=== PATIENT | male | born 1980 | race Caucasian/White ===

== ENCOUNTER 2018-11-01 10:27 | Emergency (ER) | payer BC, SELFPAY ==
[2018-11-01 10:28] VITALS: BP 138/82; PULSE 95; RESP 18; TEMP 37.1; O2SAT 97; BMI 28.7
--- NOTE | 2018-11-01 11:00 | CT_ITS ---
STUDY: CT ABDOMEN AND PELVIS WITHOUT CONTRAST REASON FOR EXAM: Male, 38 years old. Worsening left lower quadrant pain. RADIATION DOSAGE (If Supplied By Facility): CTDIvol = ( 18.23 ) mGy, DLP = ( 1092.17 ) mGycm TECHNIQUE: Transaxial images were obtained from the dome of the diaphragm to the symphysis pubis without oral contrast, and without intravenous contrast. Sagittal and coronal images were reconstructed. Individualized dose optimization techniques were used for this CT. COMPARISON: None. FINDINGS: The visualized lung bases are unremarkable. The visualized portions of the heart are within normal limits. Normal liver. Normal gallbladder and extrahepatic biliary system. Normal spleen. Normal pancreas. Normal bilateral adrenal glands. Normal right kidney. Normal left kidney. Normal visualized stomach. Normal small intestine. Moderate amount of fecal material is seen in the colon. The appendix is visualized and appears normal. Normal abdominal aorta. Normal inferior vena cava. Normal retroperitoneum. Normal urinary bladder. There is a small umbilical hernia containing fat. Minimal anterolisthesis of L5 on S1 with spondylolysis of the pars interarticularis of the L5 vertebrae. CT/Abdomen/Pelvis WITH Contrast IMPRESSION: Moderate amount of fecal material is seen in the colon. Minimal anterior listhesis of L5 on S1 with spondylolysis of the pars intraarticularis of the L5 vertebrae. Electronically Signed: Frankie Parr, at 13:05 EDT , Service support ,
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
[2018-11-01] MEDS: 0.9% Normal Saline 1,000 ML 1000 ML IV (11:13)
[2018-11-01] MEDS: Ondansetron 4 MG/2 ML Vial IV (11:13)
[2018-11-01 11:23] LABS: Absolute Neutrophil Count 3.3 X10^3/uL (2.0-7.7); Basophil# 0.03 X10^3/uL; Basophil% 0.5 % (0-1); Eosinophil# 0.26 X10^3/uL; Eosinophils% 4.3 % (0-5); Hematocrit 48.5 % (40-54); Hemoglobin 15.9 g/dl (13.0-16.5); Lymphocyte % 32.8 % (19-41); Mean Corp Hgb Conc 32.8 g/gl (32-36); Mean Corpuscular Hgb 28.8 pg (27.0-32.0); Mean Corpuscular Volume 87.9 fL (80-94); Mean Platelet Vol. 9.5 fl (6.2-12.0); Monocyte# 0.54 X10^3/uL; Monocyte% 8.9 % (0-10); Neutrophil # 3.26 X10^3/uL (2.7-7.7); Neutrophil % 53.3 % (47-70); Platelet Count 228 K/mm3 (150-450); Red Blood Count 5.52 M/mm3 (4.6-6.2); White Blood Count 6.1 K/mm3 (4.4-11.0)
[2018-11-01 11:24] LABS: POSITIVE COUNT NO; POSITIVE DIFFERENTIAL NO; POSITIVE MORPHOLOGY NO
[2018-11-01 11:37] LABS: ALB/GLOB Ratio 1.2 RATIO (0.9-2.4); AST(SGOT) 19 U/L (15-37); Alanine Aminotransfer ALT/SGPT 39 U/L (16-61); Alkaline Phosphatase 109 U/L (45-117); Anion Gap 5 (5-15); BUN 23 mg/dL (7-18); BUN/Creat Ratio 20.7 RATIO (10-20); Calcium,Total 8.7 mg/dL (8.5-10.1); Chloride 109 mmol/L (98-107); Creatinine, Serum 1.11 mg/dL (0.70-1.30); EST Glomerular Filtration Rate 78 mL/min (>60); Est Glom Filt Rate - Afr Amer 94 mL/min (>60); Estimated Creatinine Clearance 108.61 ml/min; Globulin 3.4 g/dL (2.2-4.2); Glucose 98 mg/dL (74-106); Lipase 92 U/L (73-393); Potassium 4.5 mmol/L (3.5-5.1); Protein, Total 7.4 g/dL (6.4-8.2); Sodium Level 142 mmol/L (136-145)
[2018-11-01 13:34] VITALS: BP 134/87; PULSE 84; RESP 18; O2SAT 99
== END 2018-11-01 13:55 | disposition home or self-care (01) ==
PROVIDERS: Emergency Provider Emergency Medicine
DX: K21.9 Gastro-esophageal reflux disease without esophagitis (principal); K59.00 Constipation, unspecified; K29.70 Gastritis, unspecified, without bleeding
CPT/HCPCS: 74177; 80053; 83690; 85025; 96361; 96374; 99283; J7030; Q9967; A4216; J2405

== ENCOUNTER → 2020-02-13 09:00 | Outpatient (CLI) | payer BC, SELFPAY ==
[2020-02-13 09:50] LABS: Absolute Lymphocyte Count 2.28 X10^3/uL (0.83-4.51); Basophil# 0.04 X10^3/uL; Basophil% 0.6 % (0-1); Eosinophil# 0.25 X10^3/uL; Eosinophils% 3.5 % (0-5); Hematocrit 48.3 % (40-54); Hemoglobin 15.4 g/dL (13.0-16.5); Lymphocyte # 2.28 X10^3/ul (4.0); Lymphocyte % 31.8 % (19-41); Mean Corp Hgb Conc 31.9 g/dL (32-36); Mean Corpuscular Hgb 28.5 pg (27.0-32.0); Mean Corpuscular Volume 89.4 fL (80-94); Mean Platelet Vol. 9.5 fl (6.2-12.0); Monocyte% 8.4 % (0-10); NRBC Flagged by Analyzer 0 % (0-5); Neutrophil # 3.98 X10^3/uL (2.7-7.7); Neutrophil % 55.4 % (47-70); Platelet Count 269 K/mm3 (150-450); RBC Distribution Width CV 12.3 % (11.6-14.6); RBC Distribution Width SD 40.1 fl (35.1-43.9); White Blood Count 7.2 K/mm3 (4.4-11.0)
[2020-02-13 10:19] LABS: Vitamin B12 483 pg/mL (211-911); Vitamin D,25 Hydroxy 32.7 ng/mL
[2020-02-13 10:26] LABS: AST(SGOT) 21 U/L (15-37); Alanine Aminotransfer ALT/SGPT 47 U/L (16-61); Albumin, Serum 3.8 g/dL (3.2-5.0); Alkaline Phosphatase 105 U/L (45-117); Anion Gap 4 (5-15); BUN 22 mg/dL (7-18); BUN/Creat Ratio 19.6 RATIO (10-20); Calcium,Total 8.9 mg/dL (8.5-10.1); Chloride 109 mmol/L (98-107); Cholesterol 185 mg/dL (200); Creatinine, Serum 1.12 mg/dL (0.70-1.30); EST Glomerular Filtration Rate 77 mL/min (>60); Est Glom Filt Rate - Afr Amer 93 mL/min (>60); Globulin 3.8 g/dL (2.2-4.2); Glucose 94 mg/dL (74-106); High Density Lipoprotein 52 mg/dL; Potassium 4.2 mmol/L (3.5-5.1); Protein, Total 7.6 g/dL (6.4-8.2); Sodium Level 141 mmol/L (136-145); Thyroid Stim Hormone (TSH) 0.37 uIU/mL (0.358-3.74); Triglycerides 133 mg/dL; Very Low Density Lipoprotein 27 mg/dL (5-40)
== END ==
PROVIDERS: Visit Provider Family Medicine
DX: Z13.220 Encounter for screening for lipoid disorders (principal); R53.83 Other fatigue
CPT/HCPCS: 36415; 80053; 80061; 82306; 82607; 84443; 85025

== ENCOUNTER → 2020-08-10 09:04 | Outpatient (CLI) | payer BC, SELFPAY ==
[2020-08-10 10:10] LABS: Prolactin 8.2 ng/mL
[2020-08-12 07:07] LABS: Testosterone, Free 12.89 ng/dL (5.00-21.00)
[2020-08-12 14:58] LABS: Testosterone, % Free 3.93 % (1.50-4.20); Testosterone, Total 328 ng/dL (264-916)
== END ==
PROVIDERS: PCP Family Medicine; Referring Provider Family Medicine; Visit Provider Family Medicine
DX: R53.83 Other fatigue (principal)
CPT/HCPCS: 36415; 84146; 84402; 84403

== ENCOUNTER 2021-10-24 16:21 | Outpatient (CLI) | payer BC, SELFPAY ==
[2021-10-24 18:52] LABS: ALB/GLOB Ratio 0.9 RATIO (0.9-2.4); AST(SGOT) 21 U/L (15-37); Alanine Aminotransfer ALT/SGPT 34 U/L (16-61); Albumin, Serum 3.3 g/dL (3.2-5.0); Alkaline Phosphatase 82 U/L (45-117); Anion Gap 5 (5-15); BUN 18 mg/dL (7-18); BUN/Creat Ratio 12.3 RATIO (10-20); Calcium,Total 8.8 mg/dL (8.5-10.1); Chloride 109 mmol/L (98-107); Cholesterol 146 mg/dL (200); Creatinine, Serum 1.46 mg/dL (0.70-1.30); EST Glomerular Filtration Rate 56 mL/min (>60); Est Glom Filt Rate - Afr Amer 68 mL/min (>60); Globulin 3.6 g/dL (2.2-4.2); Glucose 119 mg/dL (74-106); High Density Lipoprotein 43 mg/dL; Potassium 3.5 mmol/L (3.5-5.1); Protein, Total 6.9 g/dL (6.4-8.2); Sodium Level 141 mmol/L (136-145); Thyroid Stim Hormone (TSH) 0.84 uIU/mL (0.358-3.74); Triglycerides 155 mg/dL; Very Low Density Lipoprotein 31 mg/dL (5-40)
== END 2021-10-24 23:59 | disposition home or self-care (01) ==
LOC: MFPLAB 16:24
PROVIDERS: Family Medicine; PCP Family Medicine; Visit Provider Nurse Practitioner Family
DX: E66.9 Obesity, unspecified (principal)
CPT/HCPCS: 36415; 80053; 80061; 84443

== ENCOUNTER → 2022-01-27 | Outpatient (CLI) | payer BC, SELFPAY ==
--- NOTE | 2022-01-27 17:02 | CT_ITS ---
STUDY: CT ABDOMEN WITH CONTRAST REASON FOR EXAM: Male, 41 years old. Bulge right paraspinal area . RADIATION DOSAGE (If Supplied By Facility): CTDIvol = ( 14.70 ) mGy, DLP = ( 2567.23 ) mGycm TECHNIQUE: Transaxial images were obtained post I.V. administration of 100 mL Isovue 300. Sagittal and coronal images were reconstructed. Individualized dose optimization techniques were used for this CT. COMPARISON: November 01, 2018. FINDINGS: The visualized lung bases are unremarkable. The visualized portions of the heart are within normal limits. Normal liver. Normal gallbladder and extrahepatic biliary system. Normal spleen. Normal pancreas. Normal bilateral adrenal glands. Normal right kidney. Normal left kidney. Normal visualized stomach. Normal small intestine. Normal colon. The appendix is visualized and appears normal. Normal abdominal aorta. Normal inferior vena cava. Normal retroperitoneum. Normal abdominal wall. L5-S1 grade 1 spondylolisthesis with bilateral spondylolysis, unchanged. Disc space narrowing. Mild asymmetry involving the right lateral spinal musculature at T12 and L1 unchanged, axial image 26 series 2 and coronal image 23 series 601. Bulge measures 4.8 x 2[address]/Abdomen WITH IV Contrast IMPRESSION: No acute findings in the abdomen. Focal bulge arising from the right paraspinal musculature at T12 and L1. This has not significantly changed since the prior study. If there is a suspicion of an underlying mass and further evaluation is indicated recommend MRI. L5-S1 grade 1 spondylolisthesis with bilateral spondylolysis unchanged. Electronically Signed: Ochoa Farrell MD at 4:26 EDT Reading Location ID and State: [id number] / , Service support ,
== END | disposition home or self-care (01) ==
LOC: CT 17:00
PROVIDERS: PCP Family Medicine; Referring Provider Surgery; Visit Provider Surgery
DX: R19.00 Intra-abdominal and pelvic swelling, mass and lump, unspecified site (principal)
CPT/HCPCS: 74160; Q9967

== ENCOUNTER 2022-09-27 20:12 | Emergency (ER) | payer BC, SELFPAY ==
[2022-09-27 20:12] VITALS: BP 137/65; PULSE 82; RESP 15; TEMP 36.7; O2SAT 95; BMI 26.7
== END 2022-09-27 20:18 | disposition left against medical advice (07) ==
LOC: ED 20:29
PROVIDERS: PCP Family Medicine
DX: Z53.21 Procedure and treatment not carried out due to patient leaving prior to being seen by health care provider (principal)

== ENCOUNTER → 2022-12-13 | Outpatient (CLI) | payer BC, SELFPAY ==
[2022-12-13 13:12] LABS: Anion Gap 4 (5-15); BUN 17 mg/dL (7-18); BUN/Creat Ratio 12.9 RATIO (10-20); Calcium,Total 9.1 mg/dL (8.5-10.1); Chloride 105 mmol/L (98-107); Cholesterol 159 mg/dL (200); Creatinine, Serum 1.32 mg/dL (0.70-1.30); EST Glomerular Filtration Rate 63 mL/min (>60); Est Glom Filt Rate - Afr Amer 76 mL/min (>60); Glucose 113 mg/dL (74-106); High Density Lipoprotein 44 mg/dL; Potassium 3.7 mmol/L (3.5-5.1); Sodium Level 135 mmol/L (136-145); Triglycerides 93 mg/dL; Very Low Density Lipoprotein 19 mg/dL (5-40)
== END | disposition home or self-care (01) ==
LOC: MFPLAB 09:46
PROVIDERS: PCP Family Medicine; Visit Provider Family Medicine
DX: Z00.00 Encounter for general adult medical examination without abnormal findings (principal)
CPT/HCPCS: 36415; 80048; 80061

== ENCOUNTER 2023-03-22 21:46 | Emergency (ER) | payer BC, SELFPAY ==
[2023-03-22 21:47] VITALS: BP 162/90; PULSE 80; RESP 16; TEMP 36.4; O2SAT 98; BMI 26.5
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
--- NOTE | 2023-03-22 22:30 | RAD_ITS ---
STUDY: X-RAY - CERVICAL SPINE REASON FOR EXAM: Male, 42 years old. radiculopathy R C5-6 TECHNIQUE: 3 view(s) of the cervical spine were obtained. COMPARISON: None FINDINGS: Normal anterior atlantoaxial articulation. Normal odontoid process. There is straightening of the normal cervical lordosis. Normal vertebral bodies and endplates. Normal disc space heights. Normal visualized intervertebral neuroforamina. The soft tissue structures are unremarkable. RAD/Cerv Spine 2 or 3 Views IMPRESSION: No acute fracture or subluxation. Straightening of the normal lordotic curvature possibly from muscular spasm. Electronically Signed: Eliud Solomon MD at 23:08 EDT ,
[2023-03-22] MEDS: predniSONE 20 MG Tablet 40 MG PO (22:57)
== END 2023-03-22 22:59 | disposition home or self-care (01) ==
LOC: ED 22:35
PROVIDERS: Emergency Provider Emergency Medicine; PCP Family Medicine; Visit Provider Emergency Medicine
DX: M54.12 Radiculopathy, cervical region (principal)
CPT/HCPCS: 72040; 99283

== ENCOUNTER 2023-06-04 18:25 | Emergency (ER) | payer BC, SELFPAY ==
[2023-06-04 18:26] VITALS: BP 161/72; PULSE 93; RESP 18; TEMP 36.6; O2SAT 98; BMI 26.4
--- NOTE | 2023-06-04 18:38 | EX.ED.GENINJ ---
HPI <LATISHA Chisholm - Last Filed: 06/04/23 19:09> History of Present Illness Chief Complaint: Laceration Narrative Narrative: 42-year-old [id number] male presents after he excellently cut his left hand with a knife at work. He has a laceration bleeding is controlled. No weakness or paresthesias. Tetanus was updated 3 months ago. PFSH <LATISHA Chisholm - Last Filed: 06/04/23 19:09> PFSH Medical History Asthma Depression with anxiety H/O fracture of hip Home Medications omeprazole 20 mg capsule,delayed release 20 mg PO DAILY 11/01/18 [History Last Taken Unknown] plecanatide 3 mg tablet (Trulance) 3 mg PO DAILY 01/19/22 [History Last Taken Unknown] vortioxetine 10 mg tablet (Trintellix) 10 mg PO DAILY 01/19/22 [History Last Taken Unknown] gabapentin 300 mg capsule 300 mg PO TID #89 caps 03/22/23 [Rx Last Taken Unknown] prednisone 20 mg tablet 40 mg (2 x 20 mg) PO DAILY #10 TABLETS 03/22/23 [Rx Last Taken Unknown] Allergy/AdvReac Type Severity Reaction Status Date / Time No Known Allergies Allergy Verified 06/04/23 18:26 Surgical History H/O plastic surgery History of open reduction and internal fixation (ORIF) procedure Social History Smoking Status: Never smoker alcohol intake: never ROS <LATISHA Chisholm - Last Filed: 06/04/23 19:09> ROS ED ROS Narrative Neuro: Negative for motor/sensory dysfunction. Skin: Positive for wound. Musc: Negative for joint pain, swelling. Heme: Negative for easy bruising, bleeding, lymphadenopathy. EXAM <LATISHA Chisholm - Last Filed: 06/04/23 19:09> Physical Exam Narrative Exam Narrative: CONST: Patient sitting in no acute distress. EYES: Normal inspection. NECK: Normal inspection. SKIN: 2.5 cm flap linear laceration left hand over the dorsal aspect of the index MCP region. It is superficial, no tendon involvement. No bleeding or foreign body. EXTREMITIES: Normal appearance, full range of motion left hand and digits, normal motor and sensory function median radial nerve distributions, 2+ radial pulse and brisk cap refill. NEURO: Oriented x4. PSYCH: Normal affect. Const Vital Signs: 06/04/23 18:26 Temperature 97.8 F Temperature Source Temporal Pulse Rate 93 Respiratory Rate 18 Blood Pressure 161/72 H Blood Pressure Mean 101 Pulse Ox 98 Oxygen Delivery Method Room Air <Dr. Baldemar Murphy MD - Last Filed: 06/04/23 19:45> Physical Exam Const Vital Signs: 06/04/23 18:26 Temperature 97.8 F Temperature Source Temporal Pulse Rate 93 Respiratory Rate 18 Blood Pressure 161/72 H Blood Pressure Mean 101 Pulse Ox 98 Oxygen Delivery Method Room Air PROC <LATISHA Chisholm - Last Filed: 06/04/23 19:09> Procedures Lacerations left hand: Length: 2.5 cm Depth: Sub Q Shape: Flap Prep: Sterile Conditions and Shure-Clens Laceration repair: Irrigated, Lidocaine and Local Irrigated (ml): 100 Number of Sutures/Oscar: 3 Suture Information: Ethilon and 5-0 MDM <Dr. Baldemar Murphy MD - Last Filed: 06/04/23 19:45> MDM MDM Narrative Medical decision making narrative: I have personally performed a face to face assessment of the patient and have reviewed the CATRACHITO Note. I performed a substantive portion of the visit including all aspects of the following. My warner findings include: History: Patient accidentally cut his left nondominant hand at work with a knife. No numbness tingling weakness or loss of function. No active bleeding. Tetanus was updated a few weeks ago when he had gotten another laceration more distally on the same area. Exam: Patient awake alert no acute distress. He is approximately 2 and half centimeters angled flap type laceration over the lateral palmar surface of his hand overlying the area of the second MCP. Range of motion is normal including both deep and superficial tendons. Sensation is normal. No active bleeding. Medical Decision Making: Plan will be to clean anesthetize and suture. Discharge Plan Triage Chief Complaint: Laceration ED Midlevel Provider: Bettina Clements ED Provider: Baldemar Murphy Dx/Rx/DC Orders Clinical Impression: Laceration of hand, left Instructions: ED Laceration Extremity Prescriptions: No Action Trulance 3 mg tablet 3 mg PO DAILY Trintellix 10 mg tablet 10 mg PO DAILY omeprazole 20 MG capsule 20 mg PO DAILY prednisone 20 mg tablet 40 mg PO DAILY Qty: 10 0RF gabapentin 300 mg capsule 300 mg PO TID Qty: 89 0RF Rx Instructions: 1 cap po BID on day #1 Primary Care Provider: Jaden Rosario Referrals: Jaden Rosario MD [Primary Care Provider] - Activity Restrictions/Additional Instructions: Keep clean, have sutures removed in 7 days. Be reevaluated immediately if you develop redness swelling pus fever or increased pain. Disposition Disposition: Home, Self Care Discharge Date/Time: 06/04/23 19:18
[2023-06-04] MEDS: Lidocaine 1% (20 ml mdv) 20 ML Vial INFILT (18:53)
== END 2023-06-04 19:18 | disposition home or self-care (01) ==
LOC: ED 18:47
PROVIDERS: Emergency Provider Emergency Medicine; PCP Family Medicine; Visit Provider Emergency Medicine
DX: S61.412A Laceration without foreign body of left hand, initial encounter (principal); W26.0XXA Contact with knife, initial encounter; Y93.9 Activity, unspecified; Y99.0 Civilian activity done for income or pay; Y92.89 Other specified places as the place of occurrence of the external cause; J45.909 Unspecified asthma, uncomplicated
CPT/HCPCS: 12001; 99284

== ENCOUNTER → 2023-06-18 | Outpatient (CLI) | payer BC, SELFPAY ==
[2023-06-18 15:03] LABS: Absolute Lymphocyte Count 2.16 X10^3/uL (0.83-4.51); Absolute Neutrophil Count 3.6 X10^3/uL (2.0-7.7); Basophil# 0.08 X10^3/uL; Basophil% 1.1 % (0-1); Eosinophil# 0.59 X10^3/uL; Eosinophils% 8.3 % (0-5); Hematocrit 50.4 % (40-54); Hemoglobin 15.7 g/dL (13.0-16.5); Lymphocyte # 2.16 X10^3/ul (0.83-4.51); Lymphocyte % 30.5 % (19-41); Mean Corp Hgb Conc 31.2 g/dL (32-36); Mean Corpuscular Hgb 25.4 pg (27.0-32.0); Mean Corpuscular Volume 81.4 fL (80-94); Mean Platelet Vol. 9.5 fl (6.2-12.0); Monocyte# 0.65 X10^3/uL; Monocyte% 9.2 % (0-10); NRBC Flagged by Analyzer 0 % (0-5); Neutrophil # 3.58 X10^3/uL (2.7-7.7); Neutrophil % 50.6 % (47-70); Platelet Count 244 K/mm3 (150-450); RBC Distribution Width CV 14.8 % (11.6-14.6); RBC Distribution Width SD 41.8 fl (35.1-43.9); Red Blood Count 6.19 M/mm3 (4.6-6.2); White Blood Count 7.1 K/mm3 (4.4-11.0)
[2023-06-18 15:59] LABS: ALB/GLOB Ratio 0.9 RATIO (0.9-2.4); AST(SGOT) 31 U/L (15-37); Alanine Aminotransfer ALT/SGPT 43 U/L (16-61); Albumin, Serum 3.4 g/dL (3.2-5.0); Alkaline Phosphatase 85 U/L (45-117); Anion Gap 7 (5-15); BUN 20 mg/dL (7-18); BUN/Creat Ratio 13.2 RATIO (10-20); Calcium,Total 8.2 mg/dL (8.5-10.1); Chloride 106 mmol/L (98-107); Creatinine, Serum 1.52 mg/dL (0.70-1.30); EST Glomerular Filtration Rate 53 mL/min (>60); Est Glom Filt Rate - Afr Amer 64 mL/min (>60); Globulin 3.8 g/dL (2.2-4.2); Glucose 146 mg/dL (74-106); PSA,Total - Annual Screen 0.34 ng/mL (0.00-4.00); Potassium 3.4 mmol/L (3.5-5.1); Protein, Total 7.2 g/dL (6.4-8.2); Sodium Level 137 mmol/L (136-145); Thyroid Stim Hormone (TSH) 0.49 uIU/mL (0.358-3.74)
[2023-06-23 21:06] LABS: Testosterone, % Free 3.81 % (1.50-4.20); Testosterone, Total > 1500 ng/dL (264-916)
== END | disposition home or self-care (01) ==
LOC: LAB 14:46
PROVIDERS: PCP Family Medicine; Referring Provider Family Medicine; Visit Provider Family Medicine
DX: N52.9 Male erectile dysfunction, unspecified (principal); Z12.5 Encounter for screening for malignant neoplasm of prostate
CPT/HCPCS: 36415; 80053; 84153; 84402; 84403; 84443; 85025; G0103

== ENCOUNTER → 2023-12-27 | Outpatient (CLI) | payer BC, SELFPAY ==
[2023-12-27 10:20] LABS: Absolute Lymphocyte Count 1.72 X10^3/uL (0.83-4.51); Absolute Neutrophil Count 5.2 X10^3/uL (2.0-7.7); Basophil# 0.06 X10^3/uL; Basophil% 0.7 % (0-1); Eosinophil# 0.32 X10^3/uL; Hemoglobin 17.4 g/dL (13.0-16.5); Lymphocyte # 1.72 X10^3/ul (0.83-4.51); Lymphocyte % 21.4 % (19-41); Mean Corp Hgb Conc 30.3 g/dL (32-36); Mean Corpuscular Hgb 25.3 pg (27.0-32.0); Mean Corpuscular Volume 83.7 fL (80-94); Mean Platelet Vol. 9.6 fl (6.2-12.0); Monocyte# 0.66 X10^3/uL; Monocyte% 8.2 % (0-10); NRBC Flagged by Analyzer 0 % (0-5); Neutrophil # 5.24 X10^3/uL (2.7-7.7); Neutrophil % 65.2 % (47-70); Platelet Count 400 K/mm3 (150-450); RBC Distribution Width CV 14.8 % (11.6-14.6); RBC Distribution Width SD 43.3 fl (35.1-43.9); Red Blood Count 6.87 M/mm3 (4.6-6.2)
[2023-12-27 10:21] LABS: Anion Gap 4 (5-15); BUN 22 mg/dL (7-18); BUN/Creat Ratio 14.6 RATIO (10-20); Calcium,Total 9.3 mg/dL (8.5-10.1); Chloride 104 mmol/L (98-107); Creatinine, Serum 1.51 mg/dL (0.70-1.30); EST Glomerular Filtration Rate 53 mL/min (>60); Est Glom Filt Rate - Afr Amer 65 mL/min (>60); Glucose 93 mg/dL (74-106); Potassium 5.3 mmol/L (3.5-5.1); Sodium Level 133 mmol/L (136-145)
[2023-12-27 10:26] LABS: Hematocrit 57.5 % (40-54)
== END | disposition home or self-care (01) ==
LOC: MFPLAB 08:38
PROVIDERS: PCP Family Medicine; Visit Provider Family Medicine
DX: E66.8 Other obesity (principal); N28.9 Disorder of kidney and ureter, unspecified
CPT/HCPCS: 36415; 80048; 84403; 85025